=== PATIENT | male | born 1985 | race Caucasian/White ===

== ENCOUNTER 2024-06-28 11:31 | Emergency (ER) | payer OTHER ==
[~2024-06-28] VITALS: Ht 160 cm; Wt 78.1 kg
[2024-06-28 11:44] VITALS: BP 150/64; TEMP 98.4
[2024-06-28] MEDS: ACETAMINOPHEN ES 500 MG TABLET PO ONE (12:43)
[2024-06-28] MEDS ORDERED: ACETAMINOPHEN ES 500 MG TABLET ONE (12:44)
[2024-06-28] MEDS ORDERED: NAPR-1164 PO (13:03)
[2024-06-28 13:31] VITALS: O2SAT 98
== END 2024-06-28 13:33 | disposition home or self-care (01) ==
LOC: ER 11:31
DX: S62.337A Displaced fracture of neck of fifth metacarpal bone, left hand, initial encounter for closed fracture (principal); S62.336A Displaced fracture of neck of fifth metacarpal bone, right hand, initial encounter for closed fracture; F17.200 Nicotine dependence, unspecified, uncomplicated; W01.0XXA Fall on same level from slipping, tripping and stumbling without subsequent striking against object, initial encounter; Y93.89 Activity, other specified; Y92.89 Other specified places as the place of occurrence of the external cause; Y99.8 Other external cause status
CPT/HCPCS: 73130-TC